=== PATIENT | female | born 1965 | race Caucasian/White ===

== ENCOUNTER 2016-07-15 07:16 | Day surgery (SDC) | payer OTHER ==
[~2016-07-15] VITALS: Ht 170.2 cm; Wt 83.9 kg
[2016-07-15 09:28] VITALS: O2SAT 96
[2016-07-15] MEDS ORDERED: MIDAZOLAM HCL 5 MG/5 ML VIAL IVP ONE (09:40)
[2016-07-15] MEDS ORDERED: LR 1,000 ML IV.SOLN IV ONE (09:40)
[2016-07-15] MEDS ORDERED: SEVOFLURANE 15 MIN GAS INH ONE (09:40)
[2016-07-15] MEDS ORDERED: BUPIVACAINE /EPINEPHRINE/PF 0.25% 30 ML VIAL INJ ONE (09:40)
[2016-07-15] MEDS ORDERED: CLINDAMYCIN PHOSPHATE 900 mg/50mL D5W IV ONE (09:40)
[2016-07-15] MEDS ORDERED: DEXAMETHASONE SOD PHOSPHATE 4 MG/ML VIAL IVP ONE (09:40)
[2016-07-15] MEDS ORDERED: ONDANSETRON HCL 4 MG/2 ML VIAL IVP ONE (09:40)
[2016-07-15] MEDS ORDERED: KETOROLAC TROMETHAMINE 30 MG VIAL IVP ONE (09:40)
[2016-07-15] MEDS ORDERED: PROPOFOL 200MG/ 20ML VIAL (DIPRIVAN) IV ONE (09:40)
[2016-07-15] MEDS ORDERED: fentaNYL CITRATE 250 MCG/5 ML AMP IV ONE (09:40)
[2016-07-15] MEDS ORDERED: ROCURONIUM BROMIDE 10 MG/ML (ZEMURON) IV ONE (09:40)
[2016-07-15] MEDS ORDERED: POLYMYXIN 500,000/BACIT.10,000 UNITS in NS IRR 1 L IR ONE (10:02)
[2016-07-15] MEDS ORDERED: LR 1,000 ML IV SCH (11:12)
[2016-07-15] MEDS ORDERED: HYDROmorphone 2 MG/ML VIAL IVP PRN ×2 (11:15)
[2016-07-15] MEDS ORDERED: HYDROmorphone 1 MG INJ. 1 MG/ML AMPUL IVP PRN (11:15)
[2016-07-15] MEDS ORDERED: MEPERIDINE HCL/PF 25 MG/ML DISP.SYRIN IVP PRN (11:15)
[2016-07-15] MEDS ORDERED: HYDROmorphone 2 MG/ML VIAL ONE ×2 (11:48→12:11)
[2016-07-15 12:43] VITALS: BP 119/64; PULSE 81; RESP 16
[2016-07-15] MEDS ORDERED: HYDROcodone/ACETAMIN 10-325 MG TAB ONE (14:08)
== END 2016-07-15 16:45 | disposition home or self-care (01) ==
LOC: SDS 07:16
PROVIDERS: ATTEND Orthopaedic Surgery
DX: S82.851A Displaced trimalleolar fracture of right lower leg, initial encounter for closed fracture (principal); Y93.39 Activity, other involving climbing, rappelling and jumping off; Y93.59 Activity, other involving other sports and athletics played individually; Y92.89 Other specified places as the place of occurrence of the external cause; Y99.9 Unspecified external cause status; E66.9 Obesity, unspecified; E03.9 Hypothyroidism, unspecified
CPT/HCPCS: 27822; 76001; C1713 ×4; C1763; J1100; J1170; J1885; J2250; J2405; J2704; J3010; J3490 ×2; J7120